=== PATIENT | male | born 1960 | race American Indian/Alaskan Native ===

== ENCOUNTER 2021-10-29 17:04 | Emergency (ER) | payer OTHER ==
--- NOTE | 2021-10-29 18:53 | XRay Report ---
CHEST 2 VIEWS INDICATION / CLINICAL INFORMATION: Chest pain. COMPARISON: None available. FINDINGS: SUPPORT DEVICES: None. HEART / MEDIASTINUM: The heart size is normal with a left ventricular configuration. Pulmonary vascul ature is normal. There is mild aortic tortuosity without aneurysm. LUNGS / PLEURA: No significant pulmonary or pleural abnormality. No pneumothorax. ADDITIONAL FINDINGS: No significant additional findings. IMPRESSION: No acute findings. Signer Name: Fawad Davies MD Signed: 10/29/2021 6:49 PM Workstation Name: [id number]
[2021-10-29 18:57] LABS: Hematocrit 44.3 % (35.5-45.6); Hemoglobin 14.8 gm/dl (11.8-15.2); Mean Corpuscular HGB Conc 34 % (32-34); Mean Corpuscular Volume 93 fl (84-94); Platelet Count 196 K/mm3 (140-440); Red Blood Count 4.77 M/mm3 (3.65-5.03); Red Cell Distribution Width 14.2 % (13.2-15.2)
[2021-10-29 19:09] LABS: Alanine Aminotransferase 29 units/L (7-56); Albumin 4.9 g/dL (3.9-5); BUN/Creatinine Ratio 15; Blood Urea Nitrogen 16 mg/dL (9-20); Calcium 9.8 mg/dL (8.4-10.2); Hemolysis Index 20
--- NOTE | 2021-10-29 23:40 | Emergency Department Report ---
ED Chest Pain HPI - General Chief Complaint: Chest Pain Stated Complaint: CHEST HURTS Time Seen by Provider: 10/29/21 23:25 Source: patient Mode of arrival: Ambulatory Limitations: No Limitations - History of Present Illness Initial Comments: Patient 61-year-old male with history of hypertension and GERD presents for epigastric pain radiating to left anterior shoulder for the past week intermittently patient denies nausea vomiting no fever no chills no cough no dizziness or lightheadedness. No shortness of breath. Symptoms are exacerbated by p.o. intake. Symptoms are relieved by nothing tried patient does have a primary care doctor. States intermittent adherence to hypertension medications. Patient denies history of MD or CVA. MD Complaint: chest pain Severity scale (0 -10): 9 - Related Data Previous Rx's Medication Instructions Recorded Last Taken Type Ibuprofen [Motrin] 800 mg PO Q8H PRN #30 tablet 04/27/14 Unknown Rx traMADoL [Ultram 50 MG tab] 50 mg PO Q6HR PRN #20 tablet 04/27/14 Unknown Rx Acetaminophen [Pain Relief Extra 1,000 mg PO Q6H PRN #30 tab 10/30/21 Unknown Rx Strength] Famotidine [Pepcid] 20 mg PO BID #60 tablet 10/30/21 Unknown Rx Allergies Allergy/AdvReac Type Severity Reaction Status Date / Time No Known Allergies Allergy Verified 10/29/21 17:53 Heart Score - HEART Score History: Slightly suspicious EKG: Normal Age: 45-65 Risk factors: 1-2 risk factors Troponin: < normal limit HEART Score: 2 - EKG Read Time Time EKG Completed: 17:56 EKG Read Time: 17:59 (Sinus rhythm prolonged IA interval probable anterior septal infarct old no ST elevated MD interpreted by ED attending.) - Critical Actions Critical Actions: 0-3 pts:0.9-1.7%risk of adverse cardiac event.Candidate for discharge ED Review of Systems ROS: Stated complaint: CHEST HURTS Other details as noted in HPI Constitutional: denies: chills, fever Eyes: denies: eye pain, eye discharge, vision change ENT: denies: ear pain, throat pain Respiratory: denies: cough, shortness of breath, wheezing Cardiovascular: chest pain. denies: palpitations, dyspnea on exertion, syncope, paroxysmal nocturnal dyspnea Endocrine: no symptoms reported Gastrointestinal: abdominal pain. denies: nausea (Epigastric), vomiting, diarrhea, constipation, melena Genitourinary: denies: urgency, dysuria Musculoskeletal: denies: back pain, joint swelling, arthralgia Skin: denies: rash, lesions Neurological: denies: headache, weakness, paresthesias Psychiatric: denies: anxiety, depression Hematological/Lymphatic: denies: easy bleeding, easy bruising ED Past Medical Hx - Past Medical History Hx Hypertension: Yes Hx COPD: Yes Additional medical history: "heart trouble" had stress test was negative - Surgical History Past Surgical History?: No - Social History Smoking Status: Never Smoker Substance Use Type: None - Medications Home Medications: Home Medications Medication Instructions Recorded Confirmed Last Taken Type Ibuprofen [Motrin] 800 mg PO Q8H PRN #30 tablet 04/27/14 Unknown Rx traMADoL [Ultram 50 MG tab] 50 mg PO Q6HR PRN #20 tablet 04/27/14 Unknown Rx Acetaminophen [Pain Relief Extra 1,000 mg PO Q6H PRN #30 tab 10/30/21 Unknown Rx Strength] Famotidine [Pepcid] 20 mg PO BID #60 tablet 10/30/21 Unknown Rx ED Physical Exam - General Limitations: No Limitations General appearance: alert, in no apparent distress - Head Head exam: Present: normocephalic, normal inspection - Eye Eye exam: Present: EOMI Pupils: Present: normal accommodation - ENT ENT exam: Present: normal orophraynx, mucous membranes moist - Neck Neck exam: Present: normal inspection, full ROM. Absent: tenderness, lymphadenopathy - Respiratory Respiratory exam: Present: normal lung sounds bilaterally, chest wall tenderness (Left lateral anterior shoulder). Absent: respiratory distress, wheezes, stridor - Cardiovascular Cardiovascular Exam: Present: regular rate, normal rhythm, normal heart sounds. Absent: systolic murmur, diastolic murmur, rubs, gallop - GI/Abdominal GI/Abdominal exam: Present: soft, normal bowel sounds. Absent: distended, tenderness, guarding, rebound, rigid, bruit, hernia - Rectal Rectal exam: Present: deferred - Extremities Exam Extremities exam: Present: normal inspection, full ROM. Absent: tenderness, pedal edema - Back Exam Back exam: Present: normal inspection, full ROM. Absent: tenderness, CVA tenderness (R), CVA tenderness (L) - Neurological Exam Neurological exam: Present: alert, oriented X3, CN II-XII intact, normal gait - Psychiatric Psychiatric exam: Present: normal affect, normal mood - Skin Skin exam: Present: warm, dry, intact, normal color. Absent: rash ED Course Vital Signs 10/29/21 10/29/21 10/29/21 17:46 23:47 23:49 Temperature 98.4 F Pulse Rate 70 87 Respiratory 18 18 18 Rate Blood Pressure 140/95 152/66 [Right] O2 Sat by Pulse 100 99 99 Oximetry JAY score - Jay Score Age > 65: (0) No Aspirin use within the Past 7 Days: (0) No 3 or more CAD Risk Factors: (0) No 2 or more Angina events in past 24 hrs: (0) No Known CAD with more than 50% Stenosis: (0) No Elevated Cardiac Markers: (0) No ST Deviation Greater than 0.5mm: (0) No JAY Score: 0 ED Medical Decision Making - Lab Data Result diagrams: 10/29/21 18:22 10/29/21 18:22 Labs 10/29/21 10/29/21 10/29/21 18:22 18:22 23:39 WBC 6.4 RBC 4.77 Hgb 14.8 Hct 44.3 MCV 93 MCH 31 MCHC 34 RDW 14.2 Plt Count 196 Sodium 141 Potassium 4.4 Chloride 101.7 Carbon Dioxide 27 Anion Gap 17 BUN 16 Creatinine 1.1 Estimated GFR > 60 BUN/Creatinine Ratio 15 Glucose 98 Calcium 9.8 Total Bilirubin 0.30 AST 25 ALT 29 Alkaline Phosphatase 96 Troponin T < 0.010 < 0.010 Total Protein 8.2 Albumin 4.9 Albumin/Globulin Ratio 1.5 - EKG Data EKG shows normal: sinus rhythm, axis, QRS complexes Rate: normal - EKG Data Interpretation: nonspecific ST-T wave anshul EKG interpretation sinus rhythm prolonged IA interval 0.231 ms probable anterior septal infarct, old no ST elevated MD interpreted by ED attending. 10/29/21 23:43 - Radiology Data Radiology results: report reviewed, image reviewed CHEST 2 VIEWS INDICATION / CLINICAL INFORMATION: Chest pain. COMPARISON: None available. FINDINGS: SUPPORT DEVICES: None. HEART / MEDIASTINUM: The heart size is normal with a left ventricular configuration. Pulmonary vasculature is normal. There is mild aortic tortuosity without aneurysm. LUNGS / PLEURA: No significant pulmonary or pleural abnormality. No pneumothorax. ADDITIONAL FINDINGS: No significant additional findings. IMPRESSION: No acute findings. Signer Name: Fawad Davies MD Signed: 10/29/2021 6:49 PM Workstation Name: [id number] Transcribed By: RT Dictated By: Fawad Davies MD Electronically Authenticated By: Fawad Davies MD Signed Date/Time: 10/29/211848 DD/ 47 TD/TT: - Medical Decision Making Initial heart score is 2, JAY score 0, chest x-ray normal no infiltrates no opacities, EKG sinus rhythm prolonged IA intervals 2.231 ms, probable anteroseptal infarct old, no ST elevated MD interpreted by ED attending. Chest wall pain is reproducible to deep palpation there is no shortness of breath no diaphoresis no nausea vomiting no lightheadedness no dizziness. Chest pain described as pressure exacerbated by p.o. intake. Patient states not taking heartburn medicine at this time. She does have a primary care doctor can follow-up in 2 to 3 days. Patient symptoms improved, patient will be DC'd to home with prescription, patient will follow with primary care doctor in 2 to 3 days. Patient verbalized agreement understanding of discharge plan patient will return to ED should symptoms worsen . Critical care attestation.: If time is entered above; I have spent that time in minutes in the direct care of this critically ill patient, excluding procedure time. ED Disposition Clinical Impression: GERD (gastroesophageal reflux disease) Qualifiers: Esophagitis presence: without esophagitis Qualified Code(s): K21.9 - Gastro- esophageal reflux disease without esophagitis Chest pain Qualifiers: Chest pain type: unspecified Qualified Code(s): R07.9 - Chest pain, unspecified Disposition: 01 HOME / SELF CARE / HOMELESS Is pt being admited?: No Does the pt Need Aspirin: No Condition: Stable Instructions: Nonspecific Chest Pain, Adult, Gastroesophageal Reflux Disease, Adult, Food Choices for Gastroesophageal Reflux Disease, Adult, [id number] Additional Instructions: Take medications as prescribed, follow-up with your doctor in 2 to 3 days. Return to emergency department should symptoms worsen. Prescriptions: Acetaminophen [Pain Relief Extra Strength] 1,000 mg PO Q6H PRN #30 tab PRN Reason: Pain Famotidine [Pepcid] 20 mg PO BID #60 tablet Referrals: ARMANDO YUEN MD [Staff Physician] - 3-5 Days Forms: Work/School Release Form(ED) Time of Disposition: 01:59
[2021-10-30 03:35] VITALS: BP 158/97
--- NOTE | 2021-10-30 17:50 | Electrocardiograph Report ---
[facility] Test Date: 2021-10-29 Test Time: 17:56:08 Pat Name: HARRISON TROTTER Department: Room: Gender: M [employer]: [place] : [id number] Requested By: OLMAN BIRMINGHAM Order Number: [id number] Reading MD: Lisandro Rodríguez Measurements Intervals [place] Rate: 64 P: 44 NV: 231 QRS: 20 QRSD: 92 T: 30 QT: 401 QTc: 414 Interpretive Statements Sinus rhythm Prolonged NV interval Probable anteroseptal infarct, old No previous ECG available for comparison Electronically Signed On 10-30-2021 17:50:44 EDT by Lisandro Rodríguez
== END 2021-10-30 03:35 | disposition home or self-care (01) ==
LOC: ED 17:04
DX: K21.9 Gastro-esophageal reflux disease without esophagitis (principal); R07.9 Chest pain, unspecified; I10 Essential (primary) hypertension; J44.9 Chronic obstructive pulmonary disease, unspecified
CPT/HCPCS: 36415; 71046; 80053; 84484; 85027; 93005; 99284